=== PATIENT | male | born 2000 | race African-American/Black ===

== ENCOUNTER 2020-09-12 11:13 | Inpatient (IN) | payer OTHER ==
[~2020-09-12] VITALS: Ht 170.2 cm; Wt 37.4 kg
[2020-09-12 12:22] LABS: HEMATOCRIT 42.5 % (42.0-52.0); HEMOGLOBIN 14.4 g/dl (13.5-17.5); MEAN CORPUSCULAR HEMOGLOBIN 28.9 pg (27.0-33.0); MEAN CORPUSCULAR HGB CONC 33.9 g/dl (32.0-36.5); MEAN CORPUSCULAR VOLUME 85.3 fl (80.0-96.0); PLATELET COUNT, AUTOMATED 185 10^3/uL (150-450); RED BLOOD COUNT 4.98 10^6/uL (4.30-6.10); WHITE BLOOD COUNT 6.5 10^3/uL (4.0-10.0)
[2020-09-12 12:47] LABS: ACETAMINOPHEN LEVEL < 2.0 UG/ML (10.0-30.0); ALBUMIN 3.8 GM/DL (3.2-5.2); ALT/SGPT 62 U/L (12-78); BILIRUBIN,DIRECT 0.1 MG/DL (0.0-0.2); BILIRUBIN,TOTAL 0.4 MG/DL (0.2-1.0); BLOOD UREA NITROGEN 7 MG/DL (7-18); CALCIUM LEVEL 8.9 MG/DL (8.5-10.1); CARBON DIOXIDE LEVEL 31 MEQ/L (21-32); CHLORIDE LEVEL 105 MEQ/L (98-107); CREATININE FOR GFR 1.13 MG/DL (0.70-1.30); ETHYL ALCOHOL (ETHANOL) < 0.003 % (0.000-0.010); GLOMERULAR FILTRATION RATE > 60.0 (>60); GLUCOSE, FASTING 92 MG/DL (70-100); POTASSIUM SERUM 4.2 MEQ/L (3.5-5.1); SALICYLATE LEVEL < 1.7 MG/DL (5.0-30.0); SODIUM LEVEL 139 MEQ/L (136-145); THYROID STIMULATING HORMONE 0.631 uIU/ML (0.358-3.740)
[2020-09-12 13:53] LABS: AMPHETAMINES LEVEL URINE NEGATIVE (NEGATIVE); BARBITURATES URINE NEGATIVE (NEGATIVE); BENZODIAZEPINES URINE NEGATIVE (NEGATIVE); CANNABINOIDS URINE NEGATIVE (NEGATIVE); COCAINE METABOLITE URINE NEGATIVE (NEGATIVE); METHADONE URINE NEGATIVE (NEGATIVE); OPIATES URINE NEGATIVE (NEGATIVE); PHENCYCLIDINE URINE NEGATIVE (NEGATIVE)
[2020-09-12 14:08] LABS: RSV AMPLIFICATION NEGATIVE (NEGATIVE)
[2020-09-12] MEDS ORDERED: ACETAMINOPHEN TAB 650MG DOSE (2X325MG) PO PRN (14:40)
[2020-09-12] MEDS ORDERED: MAALOX 30 ML SUSP *UDC PO PRN (14:40)
[2020-09-12] MEDS ORDERED: MOM 30ML SUSPENSION UDC PO PRN (14:40)
[2020-09-12] MEDS ORDERED: traZODone 50 MG TAB PO PRN (14:40)
[2020-09-13 06:42] VITALS: BP 158/68
[2020-09-13] MEDS ORDERED: ZOLO50TA PO (10:01)
[2020-09-13] MEDS ORDERED: HYDR50TA70 PO (10:01)
[2020-09-13] MEDS ORDERED: SERTRALINE HCL 25 MG TABLET PO ONE (11:00)
--- NOTE | 2020-09-13 12:00 | MHHPEPDOC ---
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 Reports that he has been with it since he joined when he joined the [employer]. States " I joined before [employer] and was in basic training and COVID hit - everything is difficult with [employer]. " He states that he wants to wants to try to finish out his contract. He has 3 more years. His plans after is to go to school, return home to [place]. He reports living in a few different places growing as a " brat" (lived in [place], [facility], and [place]) PER ED REPORT: Pt was brought to the ED by [facility] after presenting to [facility] for depression and SI. Pt reports that he has had really "depressing and suicidal thoughts" since joining the [employer] July 2019. Pt reports that he "feels like my days are pointless" and wants to "bring light to his mental health." Pt reports that he has no motivation to do anything and that his days consist of "watching TV and going to work." Pt reports that he does not have a specific plan but that he has "played out many plans in my head." Pt reports that he "accidentally" cut his hand on his 20st birthday while drinking but now admits that it may have been more intentional. Pt denies substance use but reports that he drinks alcohol occasionally, although he does not want it to increase because of his depressing thoughts. Pt reports that he just wants to get help with his "depressing and suicidal thoughts" and does not want to end his life but fears it would be the only way out if he did not get help. Psychiatric Review of Systems Depression (2 or more weeks): depressed mood, feelings of excess/guilt, feelings of worthlesness (hopelessnes, helplessness), decreased energy, difficulty concentrating, appetite changes (gaining weight), psychomotor changes, suicidal thoughts Radha (4 or more days of): irritable/elevated mood (only at work, work stresses me out, I feel like I never leave work - I live in the same building [employer] - work on radios and satellites) Psychosis: denies PTSD: denies Anxiety: situational anxiety, stressor related anxiety Anxiety/ 6 months or more of: restlessness, keyed up, difficulty concentrating, irritability, muscle tension Past Psychiatric History Previous Psychiatric Diagnosis: None Previous Psychiatric Admissions: This is first Suicide Attempts: None, suicidal ideations only but no planning or intent - reasons for living 1) family, 2)friends 3) new relationship Psychiatric Follow-up: [facility] Psychiatric medications: None. 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 Describes his childhood "didn't do a lot of talking - closed off" says he lacked focus when he was in school but did ok in school enough to graduate Abuse/Trauma: None Current Living Situation: Living in [facility] Education: High School Graduate Employment: Active Duty Social Support: Family and Friends, new relationship Legal: None Marital: Never , no children Mental Status Examination General Appearance: well groomed, appears stated age, hospital scubs/clothing Build: average Demeanor: average Eye Contact: average Behavior: cooperative Speech: clear Mood: depressed Affect: full Thought Process: logical/linear Thought Content (Delusions): none reported Thought Content (Other): none reported Thought Content (Aggressive): none reported Perception (Hallucinations): none reported Perception (Other): none reported Cognition (Impairment of): none reported Cognition(Intelligence Est.): average Oriented: Awake, Alert, Oriented times three Insight: good Judgment: Good Psychosis: Psychotic Perceptions Diagnoses Major Depressive Disorder, Single Episode, Mild A-FIB/CHADSVASC A-FIB History Current/History of A-Fib/PAF?: No Current PO Anticoag Therapy: No Assessment 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 He had reported to them about fleeting suicidal ideations and they sent [facility] to [facility] for a Mental Health Evaluation. He reports situational depression due to being bored with his MOS, COVID keeping him from doing a lot of things that he was use to. 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 He states "I live and work in the same building. I don't do very much." Patient denies suicidal today, he reports minimal depression today and states that he does not want to stay in the hospital. He denies that he is unsafe, he denies continued suicidal ideation and reported that he did not have planning and vehemently denies any intent to hurt himself. He reports that his reasons for living out his mother and father, his siblings and his new relationship. Patient is agreeable to Zoloft 50 mg. He was given Zoloft 25 mg today. Also given Hydroxyzine 50 mg twice daily as needed for anxiety. He is being discharged today at his request, he is not observed to be a danger to himself or others. He was very engaged in the meeting and with his peers. Was cooperative for his short time on the unit and met criteria for discharge today. Initial Treatment Plan 1. Patient was admitted on a [9.39] status. 2. Complete history was obtained. 3. With patients permission, family will be contacted and database will be expanded. 4. Patients medication regimen will be reviewed and changed accordingly. 5. Patient will be provided with protected environment. 6. Patient will be treated with individual, group, and milieu therapies. 7. Patient will receive supportive psych-education. 8. Discharge planning will commence immediately. 9. Outpatient follow-up treatment will be strongly recommended. 10. The initial treatment plan will focus initially on: * Depression. * Risk for suicide. ESTIMATED LENGTH OF STAY: 1-3 DAYS. TIME SPENT COUNSELING AND COORDINATING INITIAL CARE: 60 minutes. N/A-No Antipsychotics Vital Signs Vital Signs Date Time Temp Pulse Resp B/P (MAP) Pulse Ox O2 Delivery O2 Flow Rate FiO2 09/13/20 07:46 Room Air 09/13/20 06:42 98.9 72 18 158/68 (98) 100 Laboratory Data 24H Labs Laboratory Tests 2 09/12/20 12:05: Nucleated Red Blood Cells % (auto) 0.0, Anion Gap 3L, Glomerular Filtration Rate > 60.0, Calcium Level 8.9, Total Bilirubin 0.4, Direct Bilirubin 0.1, Aspartate Amino Transf (AST/SGOT) 13, Alanine Aminotransferase (ALT/SGPT) 62, Alkaline Phosphatase 75, Total Protein 7.0, Albumin 3.8, Albumin/Globulin Ratio 1.2, Thyroid Stimulating Hormone (TSH) 0.631, Salicylates Level < 1.7L, Acetaminophen Level < 2.0L, Ethyl Alcohol Level < 0.003 09/12/20 13:09: Urine Opiates Screen NEGATIVE, Urine Methadone Screen NEGATIVE, Urine Barbiturates Screen NEGATIVE, Urine Phencyclidine Screen NEGATIVE, Urine Amphetamines Screen NEGATIVE, Urine Benzodiazepines Screen NEGATIVE, Urine Cocaine Metabolite Screen NEGATIVE, Urine Cannabinoids Screen NEGATIVE, Coronavirus (COVID-19)(PCR) NEGATIVE, Influenza Type A (RT-PCR) NEGATIVE, Influenza Type B (RT-PCR) NEGATIVE, Respiratory Syncytial Virus (PCR) NEGATIVE CBC/BMP Laboratory Tests 09/12/20 12:05 Medications Scheduled Sertraline Hcl (Zoloft) 50 Mg Tablet, 50 MG PO DAILY for Depression Scheduled PRN Hydroxyzine HCl (Hydroxyzine HCl) 50 Mg Tablet, 50 MG PO BIDP PRN for ANXIETY Allergies Coded Allergies: doxycycline (Verified Allergy, Intermediate, THROAT SWELLING, 09/12/20) TABATHA LUCIANO NP Sep 13, 2020 09:54
--- NOTE | 2020-09-13 12:07 | MHDSPDOC ---
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 Reports that he has been with it since he joined when he joined the [employer]. 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 " He states that he wants to wants to try to finish out his contract. He has 3 more years. His plans after is to go to school, return home to [place]. He reports living in a few different places growing as a " brat" (lived in [place], [facility], and [place]) PER ED REPORT: Pt was brought to the ED by [facility] after presenting to [facility] for depression and SI. Pt reports that he has had really "depressing and suicidal thoughts" since joining the [employer] July 2019. Pt reports that he "feels like my days are pointless" and wants to "bring light to his mental health." Pt reports that he has no motivation to do anything and that his days consist of "watching TV and going to work." Pt reports that he does not have a specific plan but that he has "played out many plans in my head." Pt reports that he "accidentally" cut his hand on his 20st birthday while drinking but now admits that it may have been more intentional. Pt denies substance use but reports that he drinks alcohol occasionally, although he does not want it to increase because of his depressing thoughts. Pt reports that he just wants to get help with his "depressing and suicidal thoughts" and does not want to end his life but fears it would be the only way out if he did not get help. CONSULTANTS INVOLVED: See Medical H + P by Hospitalist TREATMENT AND PROGRESS ON THE UNIT: Patient was admitted to the [facility] on a 9.39 legal status he was afforded the following treatment modalities: 1) Individual Therapy 2) Group Therapy 3) Medication Management 4) Milieu Therapy 5) Safe Environment HOSPITAL COURSE: Patient was admitted to [facility] on a 9.39 legal status. 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 He had reported to them about fleeting suicidal ideations and they sent [facility] to [facility] for a Mental Health Evaluation. He reports situational depression due to being bored with his MOS, COVID keeping him from doing a lot of things that he was use to. 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 He states "I live and work in the same building. I don't do very much." Patient denies suicidal today, he reports minimal depression today and states that he does not want to stay in the hospital. He denies that he is unsafe, he denies continued suicidal ideation and reported that he did not have planning and vehemently denies any intent to hurt himself. He reports that his reasons for living out his mother and father, his siblings and his new relationship. Patient is agreeable to Zoloft 50 mg. He was given Zoloft 25 mg today. Also given Hydroxyzine 50 mg twice daily as needed for anxiety. He is being discharged today at his request, he is not observed to be a danger to himself or others. He was very engaged in the meeting and with his peers. Was cooperative for his short time on the unit and met criteria for discharge today. DISCHARGE ASSESSMENT: In today's interview, patient is alert and oriented, pts dress is appropriate. Hygiene and grooming is well-kempt. Smiles on approach and is pleasant and engaged in the interview. Denies depression and anxiety. Denies suicidal and homicidal ideation, planning or intent. Denies and is not observed with angelito, psychotic symptoms of delusions, bizarre thinking, obsessions, paranoia, ruminations illogical thoughts, flight of ideas or having poor insight and judgement. Patient has normal mentation, declines further hospitalization on a voluntary status and meets criteria for discharge today. Patient encouraged to return to hospital if his symptoms worsen or change and encouraged to call unit if he/she/they needs to speak to provider for questions regarding medications or care. 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 Speech: Is fluid, conversant, normal rate, tone and volume Language skills are intact Thought processes including: linear and goal oriented Thought content: reports mild depression and anxiety. Denies suicidal/homicidal ideation, planning or intent. Abstract reasoning, and computation: fair Description of associations: denies, none observed Description of abnormal or psychotic thoughts: denies, none observed. Judgment: fair Insight: fair Orientation: alert and oriented to person, place, time and situation Recent and remote memory: intact Attention span and concentration: good Language: expansive Fund of knowledge: average Mood: Euthymic Mood Affect: reactive MEDICATIONS ON DISCHARGE: See Medication Reconciliation PLAN/FOLLOWUP ARRANGEMENTS: [facility] The amount of time spent in the coordination of care for this patient was approximately 25 minutes. ETOH/Disorder Med Rx ETOH/DRUG DISORDER RX: N/A Vital Signs/I&Os Vital Signs Date Time Temp Pulse Resp B/P (MAP) Pulse Ox O2 Delivery O2 Flow Rate FiO2 09/13/20 07:46 Room Air 09/13/20 06:42 98.9 72 18 158/68 (98) 100 Laboratory Data Labs 24H Laboratory Tests 2 09/12/20 12:05: Nucleated Red Blood Cells % (auto) 0.0, Anion Gap 3L, Glomerular Filtration Rate > 60.0, Calcium Level 8.9, Total Bilirubin 0.4, Direct Bilirubin 0.1, Aspartate Amino Transf (AST/SGOT) 13, Alanine Aminotransferase (ALT/SGPT) 62, Alkaline Phosphatase 75, Total Protein 7.0, Albumin 3.8, Albumin/Globulin Ratio 1.2, Thyroid Stimulating Hormone (TSH) 0.631, Salicylates Level < 1.7L, Acetaminophen Level < 2.0L, Ethyl Alcohol Level < 0.003 09/12/20 13:09: Urine Opiates Screen NEGATIVE, Urine Methadone Screen NEGATIVE, Urine Barbiturates Screen NEGATIVE, Urine Phencyclidine Screen NEGATIVE, Urine Amphetamines Screen NEGATIVE, Urine Benzodiazepines Screen NEGATIVE, Urine Cocaine Metabolite Screen NEGATIVE, Urine Cannabinoids Screen NEGATIVE, Coronavirus (COVID-19)(PCR) NEGATIVE, Influenza Type A (RT-PCR) NEGATIVE, Influenza Type B (RT-PCR) NEGATIVE, Respiratory Syncytial Virus (PCR) NEGATIVE CBC/BMP Laboratory Tests 09/12/20 12:05 Medications Scheduled Sertraline Hcl (Zoloft) 50 Mg Tablet, 50 MG PO DAILY for Depression, #7 Scheduled PRN Hydroxyzine HCl (Hydroxyzine HCl) 50 Mg Tablet, 50 MG PO BIDP PRN for ANXIETY, #7 Allergies Coded Allergies: doxycycline (Verified Allergy, Intermediate, THROAT SWELLING, 09/12/20) TABATHA LUCIANO NP Sep 13, 2020 12:07
== END 2020-09-13 12:58 | disposition home or self-care (01) | DRG 885 ==
LOC: M ED 11:13 → M ED INP 14:36 → M PSY 16:07
PROVIDERS: ADMIT Psychiatry & Neurology Child & Adolescent Psychiatry; ATTEND Psychiatry & Neurology Psychiatry
DX: F32.0 Major depressive disorder, single episode, mild (principal); Z20.822 Contact with and (suspected) exposure to COVID-19; Z79.899 Other long term (current) drug therapy; Z88.1 Allergy status to other antibiotic agents; F17.290 Nicotine dependence, other tobacco product, uncomplicated